=== PATIENT | female | born 1950 | race Caucasian/White ===

== ENCOUNTER → 2017-03-24 | Outpatient (CLI) | payer MEDICARE, BC ==
--- NOTE | 2017-03-24 15:34 | REPMRS ---
Patient History The patient states she had a clinical breast exam in 02/2017. Patient is postmenopausal. No known family history of cancer. Taking unspecified hormones for 5 years. Digital Woman Screen Mammo: March 24, 2017 - Exam #: [id number] Bilateral CC and MLO view(s) were taken. Technologist: Ebony Hopkins, Technologist Prior study comparison: February 04, 2016, digital woman screen mammo performed at [facility]. January 20, 2015, digital woman screen mammo performed at [facility]. FINDINGS: The breast tissue is heterogeneously dense. This may lower the sensitivity of mammography. There is a moderate amount of heterogeneously dense fibroglandular tissue which is fairly symmetric. There is no interval development of dominant mass, architectural distortion, or clustered microcalcification typical of malignancy. There has been no change in the appearance of the mammogram from the prior studies. ASSESSMENT: BI-RADS/ACR category 1 mammogram. Negative. Recommendation Routine screening mammogram of both breasts in 1 year (for women over age 40). This mammogram was interpreted with the aid of an FDA-approved computer-aided dectection system. Electronically Signed By: Estuardo Oconnor MD 03/24/17 [id number]
--- NOTE | 2017-03-30 14:50 | DEXA ---
AP SPINE L1 - L4 1.164 -0.2 1.3 LT FEMUR TOTAL 0.875 -1.1 0.3 RT FEMUR TOTAL 0.832 -1.4 0.0 TOTAL BODY TOTAL OTHER DUAL FEMUR FRAX* ASSESSMENT Risk factors: History of adult fracture. 10 year probability of fracture Major osteoporotic fracture 19.5 % Hip fracture 3.8 % COMMENTS: Normal bone densitometry of the spine. There is low bone density of the hips. The increased density of the spine does represent a significant change. The decreased density of the left hip does represent a significant change. The increased density of the right hip does not represent a significant change. The density of the spine has increased 1.4% since the initial exam on 2001. The spine density has increased 3.2% since the most recent exam on 01/20/2015. The density of the left hip has decreased 8.3% since the initial exam on 2001. The density of the left hip has decreased 2.5% since the most recent exam on . The density of the right hip has decreased 12.7% since the initial exam on 11/08. The density of the right hip has increased 0.5% since the most recent exam on . FOLLOW-UP: Recommendation for the next bone density exam: 2 years. MATTHIAS
== END ==
LOC: M WHC 13:39
PROVIDERS: ATTEND Family Medicine
DX: Z01.419 Encounter for gynecological examination (general) (routine) without abnormal findings (principal); Z12.31 Encounter for screening mammogram for malignant neoplasm of breast; Z13.820 Encounter for screening for osteoporosis; Z78.0 Asymptomatic menopausal state
CPT/HCPCS: 77080; G0101; G0202

== ENCOUNTER → 2017-04-16 | Outpatient (REF) | payer MEDICARE, OTHER | LOC: M SFHCLERA 09:31 | PROVIDERS: ATTEND Nurse Practitioner Family | DX: J02.9 Acute pharyngitis, unspecified (principal) ==

== ENCOUNTER → 2017-05-24 | Outpatient (REF) | payer MEDICARE, OTHER | LOC: M LAB REF 16:35 | PROVIDERS: ATTEND Physician Assistant Medical | DX: L03.115 Cellulitis of right lower limb (principal) ==

== ENCOUNTER → 2017-07-31 | Outpatient (CLI) | payer MEDICARE, OTHER ==
[2017-07-31 09:27] LABS: MEAN CORPUSCULAR HEMOGLOBIN 29.9 pg (27.0-33.0); MEAN CORPUSCULAR HGB CONC 33.2 g/dl (32.0-36.5); RED CELL DISTRIBUTION WIDTH 12.9 % (11.5-14.5); WHITE BLOOD COUNT 7.7 10^3/uL (4.0-10.0)
[2017-07-31 09:33] LABS: ALBUMIN 3.5 GM/DL (3.2-5.2); ALBUMIN/GLOBULIN RATIO 1.09 (1.00-1.93); BILIRUBIN,TOTAL 0.5 MG/DL (0.2-1.0); CALCIUM LEVEL 8.5 MG/DL (8.8-10.2); CREATININE FOR GFR 1.02 MG/DL (0.55-1.02); GLOMERULAR FILTRATION RATE 57.2 (>45); POTASSIUM SERUM 3.9 MEQ/L (3.5-5.1); TOTAL PROTEIN 6.7 GM/DL (6.4-8.2)
== END ==
LOC: M WUC 08:13
PROVIDERS: ATTEND Family Medicine
DX: K29.70 Gastritis, unspecified, without bleeding (principal); E78.2 Mixed hyperlipidemia; E89.0 Postprocedural hypothyroidism

== ENCOUNTER → 2018-03-30 | Outpatient (REF) | payer MEDICARE, OTHER ==
[2018-03-30 15:53] LABS: ANION GAP 5 MEQ/L (8-16); BLOOD UREA NITROGEN 15 MG/DL (7-18); CALCIUM LEVEL 8.6 MG/DL (8.8-10.2); CARBON DIOXIDE LEVEL 32 MEQ/L (21-32); CHLORIDE LEVEL 102 MEQ/L (98-107); GLOMERULAR FILTRATION RATE 58.4 (>39); GLUCOSE, FASTING 80 MG/DL (70-100); POTASSIUM SERUM 4.2 MEQ/L (3.5-5.1); SODIUM LEVEL 139 MEQ/L (136-145)
== END ==
LOC: M SFHCPLAZ 10:41
DX: Z01.818 Encounter for other preprocedural examination (principal); G56.01 Carpal tunnel syndrome, right upper limb
CPT/HCPCS: 80048

== ENCOUNTER → 2018-05-11 | Outpatient (CLI) | payer MEDICARE, BC | LOC: M WHC 13:42 | DX: Z01.419 Encounter for gynecological examination (general) (routine) without abnormal findings (principal); Z12.31 Encounter for screening mammogram for malignant neoplasm of breast; Z78.0 Asymptomatic menopausal state; Z92.29 Personal history of other drug therapy | CPT/HCPCS: 77067 ==

== ENCOUNTER → 2019-05-17 | Outpatient (CLI) | payer MEDICARE, BC ==
--- NOTE | 2019-05-17 15:06 | REPMRS ---
Patient History The patient states she has not had a clinical breast exam in over a year. Patient is postmenopausal. No known family history of cancer. Took unspecified hormones for 6 years. 3D TOMOSYNTHESIS WAS PERFORMED. [facility] lifetime risk for breast cancer is 3.8%. Digital Woman Screen Mammo: May 17, 2019 - Exam #: [id number] Bilateral CC and MLO view(s) were taken. Technologist: Ebony Hopkins, Technologist Prior study comparison: May 11, 2018, bilateral digital woman screen mammo performed at [facility]. March 24, 2017, digital woman screen mammo performed at [facility]. FINDINGS: The breast tissue is heterogeneously dense. This may lower the sensitivity of mammography. There has been no change in the appearance of the mammogram from the prior studies. There is a moderate amount of residual fibroglandular tissue which is fairly symmetric. There is no interval development of dominant mass, areas of architectural distortion, or clustered microcalcification typical of malignancy. Assessment: BI-RADS/ACR category 1 mammogram. Negative Mammogram. Recommendation Routine screening mammogram in 1 year (for women over age 40). This mammogram was interpreted with the aid of an FDA-approved computer-aided dectection system. Electronically Signed By: Brennan Ha MD 05/17/19 [id number]
== END ==
LOC: M WHC 13:35
PROVIDERS: ATTEND Family Medicine
DX: Z01.419 Encounter for gynecological examination (general) (routine) without abnormal findings (principal); Z12.31 Encounter for screening mammogram for malignant neoplasm of breast; Z78.0 Asymptomatic menopausal state; Z92.29 Personal history of other drug therapy
CPT/HCPCS: 77063; 77067; G0101

== ENCOUNTER → 2021-08-10 | Outpatient (CLI) | payer MEDICARE, BC, OTHER ==
--- NOTE | 2021-08-10 12:35 | REPMRS ---
Patient History The patient states she has not had a clinical breast exam in over a year. No known family history of cancer. Took unspecified hormones for 6 years. Tomosynthesis is performed. Volpara breast density is b. [facility] lifetime risk of breast cancer 3.3%. No breast complaints today Patient signed the MRS sheet 1st covid vaccine 12/28/20-right arm-Moderna 2nd covid vaccine 01/25/21-right arm Priors on PACS Patient Identification Verified Digital Woman Screen Mammo: August 10, 2021 - Exam #: [id number] Bilateral CC and MLO view(s) were taken. Technologist: Shasha Carranza, Technologist Prior study comparison: May 17, 2019, bilateral digital woman screen mammo performed at [facility]. May 11, 2018, bilateral digital woman screen mammo performed at [facility]. FINDINGS: The breast tissue is heterogeneously dense. This may lower the sensitivity of mammography. There has been no change in the appearance of the mammogram from the prior studies. There is a moderate amount of residual fibroglandular tissue which is fairly symmetric. There is no interval development of dominant mass, areas of architectural distortion, or clustered microcalcification typical of malignancy. Assessment: BI-RADS/ACR category 1 mammogram. Negative Mammogram. Recommendation Routine screening mammogram in 1 year (for women over age 40). This mammogram was interpreted with the aid of an FDA-approved computer-aided dectection system. Electronically Signed By: Brennan Ha MD 08/10/21 [id number]
== END ==
LOC: M WHC 11:01
PROVIDERS: ATTEND Family Medicine
DX: Z12.31 Encounter for screening mammogram for malignant neoplasm of breast (principal)

== ENCOUNTER → 2022-07-28 | Outpatient (REF) | payer MEDICARE, BC, OTHER | LOC: M LAB REF 12:27 | PROVIDERS: ATTEND Internal Medicine | DX: R19.7 Diarrhea, unspecified (principal) ==

== ENCOUNTER → 2024-07-26 | Outpatient (CLI) | payer MEDICARE, BC | LOC: M WHC 12:48 | PROVIDERS: ATTEND Internal Medicine | DX: Z12.31 Encounter for screening mammogram for malignant neoplasm of breast (principal) ==

== ENCOUNTER 2024-11-07 09:27 | Day surgery (SDC) | payer MEDICARE, BC ==
[~2024-11-07] VITALS: Ht 157.5 cm; Wt 68.9 kg
[~2024-11-07 09:27] MED LIST: BENA1TAB24 PO; FLUO-365 PO; LEVO75TA4 PO; LIDOCAINE 2% 100MG/5ML SDV (FOR ANES.) As Ordered ONE; OMEP-173 PO; PRAV10TA3 PO; ROSU10TA61 PO; TRIA37.577 PO; VITA100054 PO; propofoL 200 MG/20 ML VIAL As Ordered ONE
[2024-11-07 11:06] VITALS: TEMP 97
[2024-11-07] MEDS: ONDANSETRON 4MG 2ML VIAL IV PRN (11:20)
[2024-11-07 11:40] VITALS: BP 147/73; O2SAT 98
== END 2024-11-07 12:15 | disposition home or self-care (01) ==
LOC: M OPP 09:27
PROVIDERS: ATTEND Surgery
DX: Z12.11 Encounter for screening for malignant neoplasm of colon (principal); K64.2 Third degree hemorrhoids; Q43.8 Other specified congenital malformations of intestine; K64.4 Residual hemorrhoidal skin tags; Z88.2 Allergy status to sulfonamides; Z79.899 Other long term (current) drug therapy
CPT/HCPCS: G0121; J2405